=== PATIENT | female | born 1935 | race Caucasian/White ===

== ENCOUNTER 2019-01-28 08:00 | Outpatient (CLI) | payer MEDICARE ==
[2012-10-07 15:13] VITALS: BMI 24.5
== END 2019-01-28 23:59 | disposition home or self-care (01) ==
LOC: D.MAMMO 08:00
PROVIDERS: ATTEND Family Medicine
DX: Z12.31 Encounter for screening mammogram for malignant neoplasm of breast (principal)

== ENCOUNTER 2019-03-29 08:00 | Outpatient (CLI) | payer MEDICARE ==
[2012-10-07 15:13] VITALS: BMI 24.5
== END 2019-03-29 12:00 | disposition home or self-care (01) ==
LOC: D.MAMMO 08:00
PROVIDERS: ATTEND Family Medicine
DX: R92.8 Other abnormal and inconclusive findings on diagnostic imaging of breast (principal)